=== PATIENT | female | born 1940 | race African-American/Black ===

== ENCOUNTER 2021-10-01 14:57 | Inpatient (IN) | payer MEDICARE ==
[~2021-10-01] VITALS: Ht 167.6 cm; Wt 109.8 kg
[2021-10-01] MEDS ORDERED: SODIUM CHLORIDE 0.9% 1000ML BAG (SEPSIS BOLUS) IV ONE (15:15)
[2021-10-01] MEDS ORDERED: VANCOMYCIN 1G PREMIX 200 ML IV ONE (15:15)
[2021-10-01] MEDS ORDERED: PIPERACILLIN/TAZ 3.375G PREMIX 50 ML IV ONE (15:15)
[2021-10-01 15:54] LABS: BASOPHILS % 1.3 % (0.0-2.0); EOSINOPHILS % 3.3 % (0.0-5.0); HEMATOCRIT. 44.8 % (36.0-48.0); HEMOGLOBIN. 15.3 g/dL (12.0-16.0); LYMPHOCYTES % 14.3 % (20.0-50.0); MEAN CORPUSCULAR HEMOGLOBIN 32.7 pg (28.0-32.0); MEAN CORPUSCULAR VOLUME 95.9 fL (81.0-99.0); MEAN PLATELET VOLUME 9.7 fl (7.4-10.4); MONOCYTES % 9.3 % (2.0-8.0); NEUTROPHILS % 71.8 % (40.0-76.0); PLATELET 405 x1000/uL (130-400); RED BLOOD CELL COUNT 4.67 mill/uL (4.2-5.4); RED CELL DISTRIBUTION WIDTH 15.8 % (11.6-14.6)
[2021-10-01 16:04] LABS: CHLORIDE 111 mEq/L (98-107)
[2021-10-01 16:09] LABS: INR 1.1; PARTIAL THROMBOPLASTIN TIME 31.7 sec (23.4-31.0); PROTHROMBIN TIME 12.1 sec (9.6-11.0)
[2021-10-01] MEDS ORDERED: PIPERACILLIN/TAZ 3.375G PREMIX 50 ML IV NR (16:14)
[2021-10-01] MEDS ORDERED: ASPIRIN 325MG EC TABLET PO ONE (17:15)
[2021-10-01] MEDS ORDERED: MAGNESIUM/ALUMINUM HYDROXIDE/SIMETHICONE 30ML UDC PO PRN (22:15)
[2021-10-01] MEDS ORDERED: HYDROCODONE/ACETAMINOPHEN 5/325MG TABLET PO PRN (22:15)
[2021-10-01] MEDS ORDERED: ACETAMINOPHEN 325MG TABLET PO PRN (22:15)
[2021-10-01] MEDS ORDERED: CLONIDINE 0.1MG TABLET PO PRN (22:15)
[2021-10-01] MEDS ORDERED: DOCUSATE SODIUM 100MG CAPSULE PO PRN (22:15)
[2021-10-01] MEDS ORDERED: ONDANSETRON HCL 4MG/2ML INJ IV PRN (22:15)
[2021-10-01 22:16] LABS: CLARITY URINE CLEAR (CLEAR); COLOR URINE YELLOW (YELLOW); KETONES URINE 1+ (NEGATIVE); LEUKOCYTE ESTERASE URINE 2+ (NEGATIVE); NITRITE URINE POSITIVE (NEGATIVE); OCCULT BLOOD URINE NEGATIVE (NEGATIVE); PH URINE 5.5 (4.5-8.0); PROTEIN URINE NEGATIVE (NEGATIVE); SPECIFIC GRAVITY URINE 1.019 (1.005-1.030)
[2021-10-02] VITALS (7 sets, daily range): BP systolic 135–156; BP diastolic 69–97
[2021-10-02 08:31] LABS: BASOPHILS % 0.4 % (0.0-2.0); EOSINOPHILS % 6.6 % (0.0-5.0); HEMATOCRIT. 40.7 % (36.0-48.0); HEMOGLOBIN. 13.8 g/dL (12.0-16.0); LYMPHOCYTES % 18.9 % (20.0-50.0); MEAN CORPUSCULAR HEMOGLOBIN 32.2 pg (28.0-32.0); MEAN CORPUSCULAR VOLUME 95.4 fL (81.0-99.0); MEAN PLATELET VOLUME 9.7 fl (7.4-10.4); MONOCYTES % 11.2 % (2.0-8.0); NEUTROPHILS % 62.9 % (40.0-76.0); PLATELET 384 x1000/uL (130-400); RED BLOOD CELL COUNT 4.27 mill/uL (4.2-5.4); RED CELL DISTRIBUTION WIDTH 15.9 % (11.6-14.6)
[2021-10-02] MEDS: METOPROLOL TARTRATE 25MG TABLET PO SCH ×2 (09:13→18:32)
[2021-10-02 09:32] LABS: CHLORIDE 111 mEq/L (98-107)
[2021-10-02 09:41] LABS: HDL CHOLESTEROL 42 mg/dL (40-59); LDL CHOLESTEROL 73 mg/dL (5-100); T4 FREE 1.19 ng/dL (0.76-1.46)
[2021-10-02] MEDS ORDERED: POTASSIUM CHLORIDE 20MEQ TABLET SR PO NR (10:15)
[2021-10-02] MEDS: AMLODIPINE 10MG TABLET PO SCH (13:50)
[2021-10-02] MEDS: CEFTRIAXONE 1,000 MG in DEXTROSE 5% WATER 50 ML IV SCH (13:50)
[2021-10-02] MEDS ORDERED: NALOXONE HCL 0.4MG/ML VIAL IV PRN (18:45)
[2021-10-02] MEDS: ATORVASTATIN CALCIUM 10MG TABLET PO SCH (20:34)
[2021-10-02] MEDS ORDERED: ENOXAPARIN 30MG/0.3ML SYR SUBCUT SCH (21:00)
[2021-10-03] VITALS: BP 146/92
[2021-10-03 04:00] VITALS: BP 132/70
[2021-10-03 08:00] VITALS: BP 137/76
[2021-10-03] MEDS ORDERED: ENOXAPARIN 40MG/0.4ML SYR SUBCUT SCH (09:00)
[2021-10-03] MEDS ORDERED: ASPIRIN 81MG TABLET PO SCH (09:00)
[2021-10-03] MEDS: AMLODIPINE 10MG TABLET PO SCH (10:33)
[2021-10-03] MEDS: METOPROLOL TARTRATE 25MG TABLET PO SCH ×2 (10:33→18:02)
[2021-10-03] MEDS: CEFTRIAXONE 1,000 MG in DEXTROSE 5% WATER 50 ML IV SCH (11:29)
[2021-10-03 12:00] VITALS: BP 155/72
[2021-10-03] MEDS: NYSTATIN/TRIAMCIN CREAM 15GM TOP SCH ×2 (15:12→21:26)
[2021-10-03 16:00] VITALS: BP 131/61
[2021-10-03 20:00] VITALS: BP 132/72
[2021-10-03] MEDS: ATORVASTATIN CALCIUM 10MG TABLET PO SCH (21:26)
== END 2021-10-03 22:13 | DRG 65 ==
LOC: EDBD 14:57 → ER 14:57 → 7WST 18:31 → EDBEDREQ 18:35 → EDBEDREQTM 18:35 → ENRESERV 22:32
PROVIDERS: ADMIT Hospitalist; ATTEND Hospitalist
DX: I62.9 Nontraumatic intracranial hemorrhage, unspecified (principal); N39.0 Urinary tract infection, site not specified; I69.354 Hemiplegia and hemiparesis following cerebral infarction affecting left non-dominant side; E87.6 Hypokalemia; I10 Essential (primary) hypertension; R00.0 Tachycardia, unspecified; N63.20 Unspecified lump in the left breast, unspecified quadrant; N63.10 Unspecified lump in the right breast, unspecified quadrant; E66.01 Morbid (severe) obesity due to excess calories; B36.9 Superficial mycosis, unspecified; E78.5 Hyperlipidemia, unspecified; M13.0 Polyarthritis, unspecified; I48.91 Unspecified atrial fibrillation; J45.909 Unspecified asthma, uncomplicated; Z68.39 Body mass index [BMI] 39.0-39.9, adult; I25.2 Old myocardial infarction
CPT/HCPCS: 36415; 70551; 71045; 71250; 80053; 80061; 81003; 83605; 83880; 84145; 84439; 84443; 84484; 85025; 93005; 93880; 93970; 97162; 99285; J0696; J2543; J3370; J7030; J7060

== ENCOUNTER 2021-10-03 22:05 | Inpatient (IN) | payer MEDICARE ==
[~2021-10-03] VITALS: Ht 167.6 cm; Wt 102.1 kg
[2021-10-03 20:00] VITALS: BP 143/64
[2021-10-03 22:05] VITALS: BP 143/64
[2021-10-03] MEDS ORDERED: MAGNESIUM/ALUMINUM HYDROXIDE/SIMETHICONE 30ML UDC PO PRN (22:45)
[2021-10-03] MEDS ORDERED: DOCUSATE SODIUM 100MG CAPSULE PO PRN (22:45)
[2021-10-03] MEDS ORDERED: CLONIDINE 0.1MG TABLET PO PRN (22:45)
[2021-10-03] MEDS ORDERED: NALOXONE HCL 0.4 MG/ML 1ML VIAL IV PRN (22:45)
[2021-10-03] MEDS ORDERED: HYDROCODONE/ACETAMINOPHEN 5/325MG TABLET PO PRN (22:45)
[2021-10-03] MEDS ORDERED: ONDANSETRON HCL 4MG/2ML INJ IV PRN (22:45)
[2021-10-04] MEDS: NYSTATIN/TRIAMCIN CREAM 15GM TOP SCH ×3 (06:35→21:40)
[2021-10-04 08:00] VITALS: BP 151/80
[2021-10-04] MEDS ORDERED: ASPIRIN 81MG TABLET PO SCH (09:00)
[2021-10-04] MEDS ORDERED: METOPROLOL TARTRATE 25MG TABLET PO SCH (09:00)
[2021-10-04] MEDS: AMLODIPINE 10MG TABLET PO SCH (10:25)
[2021-10-04] MEDS ORDERED: CEFTRIAXONE 1,000 MG in DEXTROSE 5% WATER 50 ML IV SCH (11:00)
[2021-10-04] MEDS: METOPROLOL TARTRATE 50MG TABLET PO SCH (17:21)
[2021-10-04] MEDS: ENOXAPARIN 30MG/0.3ML SYR SUBCUT SCH (18:00)
[2021-10-04 20:00] VITALS: BP 136/59
[2021-10-04] MEDS: ATORVASTATIN CALCIUM 10MG TABLET PO SCH (21:40)
[2021-10-05] MEDS: NYSTATIN/TRIAMCIN CREAM 15GM TOP SCH ×3 (06:17→21:44)
[2021-10-05] MEDS: ENOXAPARIN 30MG/0.3ML SYR SUBCUT SCH ×2 (06:17→18:21)
[2021-10-05 08:00] VITALS: BP 105/72
[2021-10-05] MEDS: METOPROLOL TARTRATE 50MG TABLET PO SCH ×2 (08:56→17:00)
[2021-10-05] MEDS: AMLODIPINE 10MG TABLET PO SCH (08:57)
[2021-10-05] MEDS ORDERED: ENOXAPARIN 40MG/0.4ML SYR SUBCUT SCH (09:00)
[2021-10-05] MEDS ORDERED: SENNOSIDES 8.6MG TABLET PO PRN (16:15)
[2021-10-05] MEDS ORDERED: BISACODYL 10MG SUPP PR PRN (16:15)
[2021-10-05] MEDS ORDERED: LACTULOSE 20G/30ML UDC PO NR (16:30)
[2021-10-05 20:00] VITALS: BP 118/73
[2021-10-05] MEDS ORDERED: LACTULOSE 20G/30ML UDC PO SCH (20:00)
[2021-10-05] MEDS: ATORVASTATIN CALCIUM 10MG TABLET PO SCH (20:32)
[2021-10-06] MEDS: ENOXAPARIN 30MG/0.3ML SYR SUBCUT SCH ×2 (06:00→17:39)
[2021-10-06] MEDS: NYSTATIN/TRIAMCIN CREAM 15GM TOP SCH ×3 (06:00→21:29)
[2021-10-06 08:00] VITALS: BP 149/54
[2021-10-06] MEDS: AMLODIPINE 10MG TABLET PO SCH (09:15)
[2021-10-06] MEDS: METOPROLOL TARTRATE 50MG TABLET PO SCH ×2 (09:15→17:39)
[2021-10-06 20:00] VITALS: BP 101/56
[2021-10-06] MEDS: ATORVASTATIN CALCIUM 10MG TABLET PO SCH (20:30)
[2021-10-07] MEDS: ENOXAPARIN 30MG/0.3ML SYR SUBCUT SCH (06:28)
[2021-10-07] MEDS: NYSTATIN/TRIAMCIN CREAM 15GM TOP SCH ×3 (06:29→20:43)
[2021-10-07 08:00] VITALS: BP 118/63
[2021-10-07] MEDS: AMLODIPINE 10MG TABLET PO SCH (09:22)
[2021-10-07] MEDS: METOPROLOL TARTRATE 50MG TABLET PO SCH ×2 (09:23→17:17)
[2021-10-07] MEDS ORDERED: ENOXAPARIN 80MG/0.8ML SYR SUBCUT NR (10:15)
[2021-10-07] MEDS ORDERED: ENOXAPARIN 120MG/0.8ML SYR SUBCUT SCH (10:30)
[2021-10-07 20:00] VITALS: BP 133/76
[2021-10-07] MEDS: ATORVASTATIN CALCIUM 10MG TABLET PO SCH (20:41)
[2021-10-07] MEDS: ENOXAPARIN 120MG/0.8ML SYR SUBCUT SCH (20:42)
[2021-10-08] MEDS: NYSTATIN/TRIAMCIN CREAM 15GM TOP SCH ×3 (06:00→21:00)
[2021-10-08 08:00] VITALS: BP 120/47
[2021-10-08] MEDS: AMLODIPINE 10MG TABLET PO SCH (09:21)
[2021-10-08] MEDS: METOPROLOL TARTRATE 50MG TABLET PO SCH ×2 (09:23→17:16)
[2021-10-08 12:44] LABS: BASOPHILS % 0.6 % (0.0-2.0); EOSINOPHILS % 2.1 % (0.0-5.0); HEMATOCRIT. 43.6 % (36.0-48.0); HEMOGLOBIN. 14.5 g/dL (12.0-16.0); LYMPHOCYTES % 11.9 % (20.0-50.0); MEAN CORPUSCULAR HEMOGLOBIN 31.8 pg (28.0-32.0); MEAN CORPUSCULAR VOLUME 95.9 fL (81.0-99.0); MONOCYTES % 11.3 % (2.0-8.0); NEUTROPHILS % 74.1 % (40.0-76.0); PLATELET 412 x1000/uL (130-400); RED BLOOD CELL COUNT 4.55 mill/uL (4.2-5.4); RED CELL DISTRIBUTION WIDTH 15.8 % (11.6-14.6)
[2021-10-08 13:23] LABS: CHLORIDE 107 mEq/L (98-107)
[2021-10-08] MEDS: ENOXAPARIN 120MG/0.8ML SYR SUBCUT SCH ×2 (17:10→21:00)
[2021-10-08 20:00] VITALS: BP 122/69
[2021-10-08] MEDS: ATORVASTATIN CALCIUM 10MG TABLET PO SCH (20:59)
[2021-10-09] MEDS: NYSTATIN/TRIAMCIN CREAM 15GM TOP SCH (05:38)
[2021-10-09 08:00] VITALS: BP 140/65
[2021-10-09] MEDS: ACETAMINOPHEN 325MG TABLET PO PRN (08:41)
[2021-10-09] MEDS: METOPROLOL TARTRATE 50MG TABLET PO SCH ×2 (08:42→16:50)
[2021-10-09] MEDS: ENOXAPARIN 120MG/0.8ML SYR SUBCUT SCH ×2 (08:42→20:34)
[2021-10-09] MEDS: AMLODIPINE 10MG TABLET PO SCH (08:42)
[2021-10-09] MEDS: NYSTATIN POWDER 15GM TOP SCH ×3 (13:00→16:47)
[2021-10-09 20:00] VITALS: BP 137/67
[2021-10-09] MEDS: ATORVASTATIN CALCIUM 10MG TABLET PO SCH (20:34)
[2021-10-10 08:00] VITALS: BP 110/55
[2021-10-10] MEDS: AMLODIPINE 10MG TABLET PO SCH (08:35)
[2021-10-10] MEDS: METOPROLOL TARTRATE 50MG TABLET PO SCH ×2 (08:35→17:00)
[2021-10-10] MEDS: NYSTATIN POWDER 15GM TOP SCH ×3 (08:36→17:00)
[2021-10-10] MEDS: ENOXAPARIN 120MG/0.8ML SYR SUBCUT SCH ×2 (08:36→20:31)
[2021-10-10 16:53] VITALS: BP 98/58
[2021-10-10 20:00] VITALS: BP 121/55
[2021-10-10] MEDS: ATORVASTATIN CALCIUM 10MG TABLET PO SCH (20:30)
[2021-10-11] MEDS: ACETAMINOPHEN 325MG TABLET PO PRN (04:34)
[2021-10-11 08:00] VITALS: BP 105/58
[2021-10-11] MEDS: AMLODIPINE 10MG TABLET PO SCH (09:00)
[2021-10-11] MEDS: NYSTATIN POWDER 15GM TOP SCH ×3 (10:24→17:48)
[2021-10-11] MEDS: ENOXAPARIN 120MG/0.8ML SYR SUBCUT SCH ×2 (10:24→21:00)
[2021-10-11] MEDS: METOPROLOL TARTRATE 50MG TABLET PO SCH ×2 (10:26→17:49)
[2021-10-11 20:00] VITALS: BP 109/64
[2021-10-11] MEDS: ATORVASTATIN CALCIUM 10MG TABLET PO SCH (22:02)
[2021-10-12 07:54] VITALS: BP 136/89
[2021-10-12] MEDS: AMLODIPINE 10MG TABLET PO SCH (08:53)
[2021-10-12] MEDS: METOPROLOL TARTRATE 50MG TABLET PO SCH ×2 (08:55→17:31)
[2021-10-12] MEDS: ENOXAPARIN 120MG/0.8ML SYR SUBCUT SCH ×2 (08:56→21:00)
[2021-10-12] MEDS: NYSTATIN POWDER 15GM TOP SCH ×3 (09:00→17:00)
[2021-10-12 20:00] VITALS: BP 132/66
[2021-10-12] MEDS: ATORVASTATIN CALCIUM 10MG TABLET PO SCH (21:00)
[2021-10-13 08:00] VITALS: BP_SYST 100; BP_SYST 137; BP_DIAS 48; BP_DIAS 69
[2021-10-13] MEDS: NYSTATIN POWDER 15GM TOP SCH ×3 (09:00→17:00)
[2021-10-13] MEDS: AMLODIPINE 10MG TABLET PO SCH (09:26)
[2021-10-13] MEDS: METOPROLOL TARTRATE 50MG TABLET PO SCH ×2 (09:27→18:02)
[2021-10-13] MEDS: ENOXAPARIN 120MG/0.8ML SYR SUBCUT SCH ×2 (09:27→21:26)
[2021-10-13] MEDS: ACETAMINOPHEN 325MG TABLET PO PRN (14:35)
[2021-10-13 20:00] VITALS: BP 119/72
[2021-10-13] MEDS: ATORVASTATIN CALCIUM 10MG TABLET PO SCH (21:26)
[2021-10-14 07:51] VITALS: BP 99/60
[2021-10-14] MEDS: METOPROLOL TARTRATE 50MG TABLET PO SCH ×2 (09:00→16:05)
[2021-10-14] MEDS: AMLODIPINE 10MG TABLET PO SCH (09:00)
[2021-10-14] MEDS: ENOXAPARIN 120MG/0.8ML SYR SUBCUT SCH ×2 (09:13→21:45)
[2021-10-14] MEDS: NYSTATIN POWDER 15GM TOP SCH ×3 (09:35→16:07)
[2021-10-14 16:00] VITALS: BP 109/67
[2021-10-14 20:33] VITALS: BP 118/51
[2021-10-14] MEDS: ATORVASTATIN CALCIUM 10MG TABLET PO SCH (21:45)
[2021-10-15 07:56] VITALS: BP 126/64
[2021-10-15 08:23] LABS: BASOPHILS % 0.5 % (0.0-2.0); EOSINOPHILS % 2.7 % (0.0-5.0); HEMATOCRIT. 42.7 % (36.0-48.0); LYMPHOCYTES % 16.4 % (20.0-50.0); MEAN CORPUSCULAR HEMOGLOBIN 31.5 pg (28.0-32.0); MEAN CORPUSCULAR VOLUME 95.6 fL (81.0-99.0); MEAN PLATELET VOLUME 10.2 fl (7.4-10.4); MONOCYTES % 11.2 % (2.0-8.0); NEUTROPHILS % 69.2 % (40.0-76.0); PLATELET 456 x1000/uL (130-400); RED BLOOD CELL COUNT 4.46 mill/uL (4.2-5.4); RED CELL DISTRIBUTION WIDTH 16.2 % (11.6-14.6)
[2021-10-15] MEDS: ENOXAPARIN 120MG/0.8ML SYR SUBCUT SCH (08:34)
[2021-10-15] MEDS: AMLODIPINE 10MG TABLET PO SCH (08:35)
[2021-10-15] MEDS: METOPROLOL TARTRATE 50MG TABLET PO SCH ×2 (08:35→17:43)
[2021-10-15] MEDS: NYSTATIN POWDER 15GM TOP SCH ×3 (08:38→17:43)
[2021-10-15] MEDS: RIVAROXABAN 20 MG TABLET PO SCH (17:40)
[2021-10-15 20:00] VITALS: BP 114/54
[2021-10-15] MEDS: ATORVASTATIN CALCIUM 10MG TABLET PO SCH (20:15)
[2021-10-16 08:00] VITALS: BP 140/73
[2021-10-16] MEDS: AMLODIPINE 10MG TABLET PO SCH (08:56)
[2021-10-16] MEDS: ACETAMINOPHEN 325MG TABLET PO PRN (08:57)
[2021-10-16] MEDS: NYSTATIN POWDER 15GM TOP SCH ×3 (08:57→17:00)
[2021-10-16] MEDS: METOPROLOL TARTRATE 50MG TABLET PO SCH ×2 (08:57→18:00)
[2021-10-16] MEDS: RIVAROXABAN 20 MG TABLET PO SCH (17:58)
[2021-10-16 20:00] VITALS: BP 120/72
[2021-10-16] MEDS: ATORVASTATIN CALCIUM 10MG TABLET PO SCH (21:39)
[2021-10-17 07:51] VITALS: BP 128/60
[2021-10-17] MEDS: NYSTATIN POWDER 15GM TOP SCH ×3 (09:00→17:48)
[2021-10-17] MEDS: METOPROLOL TARTRATE 50MG TABLET PO SCH ×2 (09:59→17:00)
[2021-10-17] MEDS: AMLODIPINE 10MG TABLET PO SCH (10:00)
[2021-10-17] MEDS: RIVAROXABAN 20 MG TABLET PO SCH (17:48)
[2021-10-17 20:00] VITALS: BP 120/57
[2021-10-17] MEDS: ATORVASTATIN CALCIUM 10MG TABLET PO SCH (20:10)
[2021-10-18 08:00] VITALS: BP 115/70
[2021-10-18] MEDS: AMLODIPINE 10MG TABLET PO SCH (08:52)
[2021-10-18] MEDS: METOPROLOL TARTRATE 50MG TABLET PO SCH (08:52)
[2021-10-18] MEDS: NYSTATIN POWDER 15GM TOP SCH ×2 (08:53→13:02)
[2021-10-18 10:39] VITALS: BP 115/70
== END 2021-10-18 16:40 | DRG 65 ==
PROVIDERS: ADMIT Psychiatry & Neurology Neurology; ATTEND Hospitalist
PROC: 4A10X4Z Monitoring of Central Nervous Electrical Activity, External Approach (ICD-10-PCS; principal; 2021-10-06)
DX: I63.9 Cerebral infarction, unspecified (principal); I48.11 Longstanding persistent atrial fibrillation; N39.0 Urinary tract infection, site not specified; G81.91 Hemiplegia, unspecified affecting right dominant side; E78.5 Hyperlipidemia, unspecified; N60.09 Solitary cyst of unspecified breast; B36.9 Superficial mycosis, unspecified; M17.0 Bilateral primary osteoarthritis of knee; J45.909 Unspecified asthma, uncomplicated; E66.01 Morbid (severe) obesity due to excess calories; F39 Unspecified mood [affective] disorder; I11.9 Hypertensive heart disease without heart failure; Z20.822 Contact with and (suspected) exposure to COVID-19; I25.2 Old myocardial infarction; Z82.3 Family history of stroke; Z79.899 Other long term (current) drug therapy; Z68.39 Body mass index [BMI] 39.0-39.9, adult; N63.20 Unspecified lump in the left breast, unspecified quadrant; N63.10 Unspecified lump in the right breast, unspecified quadrant; R26.9 Unspecified abnormalities of gait and mobility
CPT/HCPCS: 36415; 73560; 80048; 82040; 84134; 85025; 87426; 92523; 92610; 93306; 97110; 97116; 97150; 97162; 97166; 97530; 97535; 97542; J0696; J1650; J7060